=== PATIENT | female | born 1930 | race Caucasian/White ===

== ENCOUNTER → 2017-06-25 | Outpatient (CLI) | payer OTHER ==
[~2017-06-25] MED LIST: ALBINS/ INH; ATOR-22 PO; ATR10 PO; CALC600T9 PO; CARB25TA12 PO; CHOL1000 PO; CYAN1SUB13 SQ; KPP/1000 PO; LOSA1TAB PO; PLMINS NEB; PROAIR INH; PRT/20 PO; WARF4TAB8 PO
[2017-06-25 12:13] LABS: INR 1.9 (0.9-1.1); PROTHROMBIN TIME (PATIENT) 20.8 SECONDS (9.0-12.0)
== END | disposition home or self-care (01) ==
LOC: C.LABPBG 08:58
PROVIDERS: ATTEND Internal Medicine Endocrinology, Diabetes & Metabolism
DX: I48.2 Chronic atrial fibrillation (principal)

== ENCOUNTER 2017-07-12 18:26 | Emergency (ER) | payer OTHER ==
[~2017-07-12] VITALS: Ht 170.2 cm; Wt 47.0 kg
[2017-07-12 18:55] VITALS: TEMP 36.9; Ht 170.2 cm; Wt 47.0 kg
[2017-07-12] MEDS ORDERED: SODIUM CHLORIDE 0.9% 1000ML 250 ML IV STA (20:01)
--- NOTE | 2017-07-12 20:20 | DIAGNOSTIC IMAGING REPORT ---
SINGLE VIEW CHEST CLINICAL HISTORY: Atypical chest pain. FINDINGS: An AP, portable, upright chest radiograph is obtained. No prior studies are available for comparison at the time of dictation. The examination is degraded by portable technique and patient rotation. The heart is markedly enlarged and there is atherosclerotic calcification of the thoracic aorta. The pulmonary vasculature is noncongested. Nonspecific interstitial thickening is seen throughout. Linear atelectasis versus scarring is identified in the left midlung. There is no airspace consolidation typical for pneumonia or large pleural effusion. A nodular density projecting over the right lung base likely represents a nipple shadow. No pneumothorax is seen. The skeletal structures are osteopenic. The bony thorax is grossly intact. IMPRESSION: 1. Marked cardiomegaly with no acute cardiopulmonary abnormality. 2. A nodular density projecting over the right lung base likely represents a nipple shadow. A repeat examination with nipple markers would be confirmatory. Electronically signed by: Aron Jackson M.D. 07/12/2017 8:19 PM Dictated Date/Time: 07/12/2017 8:17 PM
[2017-07-12 20:47] LABS: BASO % 0.2 %; BASO ABS # 0.01 K/uL (0-0.2); COMPLETE YES; EOS % 2.8 %; HEMATOCRIT 35.9 % (37-47); IG% 0.2 %; LYMPH % 27.2 %; LYMPH ABS # 1.65 K/uL (1.2-3.4); MEAN CELL VOLUME 99.7 fL (80-100); MEAN CORPUSCULAR HEMOGLOBIN 33.1 pg (25-34); MEAN CORPUSCULAR HGB CONC 33.1 g/dl (32-36); MEAN PLATELET VOLUME 11.4 fL (7.4-10.4); MONO % 9.4 %; NEUT % 60.2 %; PLATELET COUNT 167 K/uL (130-400); WHITE BLOOD COUNT 6.06 K/uL (4.8-10.8)
[2017-07-12 20:50] LABS: MANUAL MICROSCOPIC REQUIRED? NO; REVIEW REQ? YES; URINE APPEARANCE CLEAR (CLEAR); URINE BILIRUBIN NEG (NEG); URINE COLOR YELLOW; URINE NITRITE NEG (NEG); URINE SPECIFIC GRAVITY 1.027 (1.000-1.030); UROBILINOGEN NEG (NEG)
[2017-07-12 21:09] LABS: ALKALINE PHOSPHATASE 71 U/L (45-117); ALT/SGPT 20 U/L (12-78); BLOOD UREA NITROGEN 35 mg/dl (7-18); BUN/CREATININE RATIO 32.1 (10-20); CALCIUM 8.9 mg/dl (8.5-10.1); CARBON DIOXIDE 25 mmol/L (21-32); CHLORIDE 108 mmol/L (98-107); GLUCOSE 111 mg/dl (70-99); SODIUM 141 mmol/L (136-145)
--- NOTE | 2017-07-12 21:14 | DIAGNOSTIC IMAGING REPORT ---
CT SCAN OF THE BRAIN WITHOUT IV CONTRAST CLINICAL HISTORY: Change in mental status. COMPARISON STUDY: No priors. TECHNIQUE: Unenhanced axial CT scan of the brain is performed from the vertex to the skull base. CT DOSE: 614.27 mGy.cm FINDINGS: Brain parenchyma: There are age-related involutional changes noting moderate subcortical and periventricular microangiopathic change. Right frontoparietal encephalomalacia is consistent with a remote infarct. There is no hemorrhage, mass effect, or evidence of acute territorial ischemia by CT criteria. Triana-white matter is preserved. No extra-axial fluid collection is seen. Ventricles, sulci, cisterns: Prominent secondary to involutional change. Intracranial vasculature: There is atherosclerotic calcification of the cavernous carotid and vertebral arteries. Calvarium: Unremarkable. Sinuses and mastoids: The visualized paranasal sinuses are clear. There is a left mastoid effusion. The right mastoid air cells are well pneumatized. Orbits: The bony orbits are grossly intact. There are bilateral ocular lens implants. IMPRESSION: Senescent changes and remote infarct as above. There is no hemorrhage, mass effect, or evidence of acute territorial ischemia by CT criteria. Electronically signed by: Aron Jackson M.D. 07/12/2017 9:12 PM Dictated Date/Time: 07/12/2017 9:10 PM
[2017-07-12] MEDS ORDERED: KPP/1000 PO (21:20)
[2017-07-12] MEDS ORDERED: CHOL1000 PO (21:20)
[2017-07-12] MEDS ORDERED: CARB25TA12 PO (21:20)
[2017-07-12] MEDS ORDERED: WARF4TAB8 PO (21:20)
[2017-07-12] MEDS ORDERED: ALBINS/ INH (21:20)
[2017-07-12] MEDS ORDERED: CALC600T9 PO (21:20)
[2017-07-12] MEDS ORDERED: ATOR-22 PO (21:20)
[2017-07-12] MEDS ORDERED: LOSA1TAB PO (21:20)
[2017-07-12] MEDS ORDERED: PLMINS NEB (21:21)
[2017-07-12] MEDS ORDERED: PROAIR INH (21:21)
[2017-07-12] MEDS ORDERED: CYAN1SUB13 SQ (21:21)
[2017-07-12] MEDS ORDERED: ATR10 PO (21:21)
[2017-07-12] MEDS ORDERED: PRT/20 PO (21:21)
[2017-07-12 21:57] LABS: INR 1.7 (0.9-1.1); PARTIAL THROMBOPLASTIN RATIO 1.2; PROTHROMBIN TIME (PATIENT) 18.5 SECONDS (9.0-12.0)
[2017-07-12 22:38] VITALS: BP 169/89; PULSE 79; O2SAT 97
--- NOTE | 2017-07-13 01:23 | EMERGENCY ROOM VISIT NOTE ---
History Report prepared by Huy: Anita Murphy Under the Supervision of: Dr. Rylan Hardy M.D. First contact with patient: 19:50 Chief Complaint: URINARY SYMPTOMS Stated Complaint: CONFUSION, UTI, VAGINAL IRRITATION, SORENESS Nursing Triage Summary: pt brought in by family for confusion, states "she has been repeating herself." called family doctor and told to come in to be evaluated. states pt is having "irritation down there." pt denies buring with urination. History of Present Illness The patient is a 86 year old female who presents to the Emergency Room with complaints of constant confusion beginning 1 week ago. The patient's daughter states that the patient has a history of stroke, seizures, dementia, and aortic stenosis. She reports that the patient does not normally have significant memory problems but in the last week she has been repetitive and confused. She notes that the patient does not understand what is going on and and has been repeating stories many times. The daughter states that that the patient has had confusion symptoms previously and has had a UTI. The patient complains of dysuria, shortness of breath in the mornings, and intermittent headaches. She denies any fall, fever, cough, chest pain, hematuria. She notes that she is on a blood thinner. Source of History: patient, family Onset: 1 week ago Position: other (global) Quality: other (confusion) Timing: constant Associated Symptoms: + headache, + SOB, + urinary symptoms, No LOC, No fevers, No cough, No chest pain Review of Systems See HPI for pertinent positives & negatives. A total of 10 systems reviewed and were otherwise negative. Past Medical & Surgical Medical Problems: (1) HTN (hypertension) (2) Seizures (3) TIA (transient ischemic attack) Old medical records were reviewed. Nurse's notes were reviewed and I agree with. Family History No pertinent family history stated. Social History Smoking Status: Never Smoker Drug Use: none Housing Status: lives with family Occupation Status: retired Current/Historical Medications Scheduled Atorvastatin (Lipitor), 20 MG PO HS Budesonide (Budesonide), 1 VIAL NEB BID Calcium Carbonate-Vitamin D (Calcium + D), 1 TAB PO DAILY Carbidopa/Levodopa (Sinemet 25MG/100MG), 0.5 TAB PO BID Cholecalciferol (Vitamin D3), 2 TAB PO DAILY Cyanocobalamin (B-12), 1,000 MCG SQ 2XMONTH Hydroxyzine HCl (Hydroxyzine HCl), 10 MG PO Q2D Levetiracetam (Keppra), 1,000 MG PO BID Losartan Potassium (Cozaar), 25 MG PO DAILY Pantoprazole (Protonix), 20 MG PO DAILY Warfarin Sod (Jantoven), 4 MG PO QPM Scheduled PRN Albuterol Sulf (Proventil 0.083% 2.5MG/3ML), 2.5 MG INH Q4-6HRS PRN for Wheezing [Proair], 2 PUFFS INH Q6 PRN for SOB/Wheezing Physical Exam Vital Signs Date Time Temp Pulse Resp B/P (MAP) Pulse Ox O2 Delivery O2 Flow Rate FiO2 07/12/17 22:38 79 18 169/89 97 Room Air 07/12/17 20:40 65 20 171/98 98 Room Air 07/12/17 18:55 36.9 86 18 109/58 93 Room Air Physical Exam General: Non-ill appearing older female in no acute distress. HEENT: Normal cephalic atraumatic. Pupils are equal round and reactive to light. Extraocular movements are intact. Oropharynx is pink with moist mucous membranes. No swelling of the mouth lips or tongue. Neck: Supple with a midline trachea. No meningeal signs or stiffness, no JVD or bruits. No Stridor. Chest: Clear to auscultation bilaterally. No wheezes or rhonchi. No increased work of breathing. Heart: regular rate and rhythm. Abdomen: Soft nontender, nondistended without rebound guarding or rigidity. Extremities: No cyanosis clubbing or edema. No calf tenderness or assymetry Spine/Back. Non tender to palpation. No CVA tenderness Skin: Good turgor without rashes. Neurologic exam: Cranial nerves two through 12 are intact. Motor and sensation are intact and symmetrical throughout. Medical Decision & Procedures ER Provider Diagnostic Interpretation: Radiology results as stated below per my review and radiologist interpretation: CT SCAN OF THE BRAIN WITHOUT IV CONTRAST FINDINGS: Brain parenchyma: There are age-related involutional changes noting moderate subcortical and periventricular microangiopathic change. Right frontoparietal encephalomalacia is consistent with a remote infarct. There is no hemorrhage, mass effect, or evidence of acute territorial ischemia by CT criteria. Triana-white matter is preserved. No extra-axial fluid collection is seen. Ventricles, sulci, cisterns: Prominent secondary to involutional change. Intracranial vasculature: There is atherosclerotic calcification of the cavernous carotid and vertebral arteries. Calvarium: Unremarkable. Sinuses and mastoids: The visualized paranasal sinuses are clear. There is a left mastoid effusion. The right mastoid air cells are well pneumatized. Orbits: The bony orbits are grossly intact. There are bilateral ocular lens implants. IMPRESSION: Senescent changes and remote infarct as above. There is no hemorrhage, mass effect, or evidence of acute territorial ischemia by CT criteria. Electronically signed by: Aron Jackson M.D. 07/12/2017 9:12 PM Dictated Date/Time: 07/12/2017 9:10 PM SINGLE VIEW CHEST FINDINGS: An AP, portable, upright chest radiograph is obtained. No prior studies are available for comparison at the time of dictation. The examination is degraded by portable technique and patient rotation. The heart is markedly enlarged and there is atherosclerotic calcification of the thoracic aorta. The pulmonary vasculature is noncongested. Nonspecific interstitial thickening is seen throughout. Linear atelectasis versus scarring is identified in the left midlung. There is no airspace consolidation typical for pneumonia or large pleural effusion. A nodular density projecting over the right lung base likely represents a nipple shadow. No pneumothorax is seen. The skeletal structures are osteopenic. The bony thorax is grossly intact. IMPRESSION: 1. Marked cardiomegaly with no acute cardiopulmonary abnormality. 2. A nodular density projecting over the right lung base likely represents a nipple shadow. A repeat examination with nipple markers would be confirmatory. Electronically signed by: Aron Jackson M.D. 07/12/2017 8:19 PM Dictated Date/Time: 07/12/2017 8:17 PM Laboratory Results 07/12/17 20:20 Red Blood Count 3.60, Mean Corpuscular Volume 99.7, Mean Corpuscular Hemoglobin 33.1, Mean Corpuscular Hemoglobin Concent 33.1, Mean Platelet Volume 11.4, Neutrophils (%) (Auto) 60.2, Lymphocytes (%) (Auto) 27.2, Monocytes (%) (Auto) 9.4, Eosinophils (%) (Auto) 2.8, Basophils (%) (Auto) 0.2, Neutrophils # (Auto) 3.65, Lymphocytes # (Auto) 1.65, Monocytes # (Auto) 0.57, Eosinophils # (Auto) 0.17, Basophils # (Auto) 0.01 07/12/17 20:20 07/12/17 21:31 Test 07/12/17 20:20 07/12/17 20:35 07/12/17 20:39 07/12/17 21:31 White Blood Count 6.06 K/uL (4.8-10.8) Red Blood Count 3.60 M/uL (4.2-5.4) Hemoglobin 11.9 g/dL (12.0-16.0) Hematocrit 35.9 % (37-47) Mean Corpuscular Volume 99.7 fL (80-100) Mean Corpuscular Hemoglobin 33.1 pg (25-34) Mean Corpuscular Hemoglobin Concent 33.1 g/dl (32-36) Platelet Count 167 K/uL (130-400) Mean Platelet Volume 11.4 fL (7.4-10.4) Neutrophils (%) (Auto) 60.2 % Lymphocytes (%) (Auto) 27.2 % Monocytes (%) (Auto) 9.4 % Eosinophils (%) (Auto) 2.8 % Basophils (%) (Auto) 0.2 % Neutrophils # (Auto) 3.65 K/uL (1.4-6.5) Lymphocytes # (Auto) 1.65 K/uL (1.2-3.4) Monocytes # (Auto) 0.57 K/uL (0.11-0.59) Eosinophils # (Auto) 0.17 K/uL (0-0.5) Basophils # (Auto) 0.01 K/uL (0-0.2) RDW Standard Deviation 45.9 fL (36.4-46.3) RDW Coefficient of Variation 12.5 % (11.5-14.5) Immature Granulocyte % (Auto) 0.2 % Immature Granulocyte # (Auto) 0.01 K/uL (0.00-0.02) Anion Gap 8.0 mmol/L (3-11) Est Creatinine Clear Calc Drug Dose 26.7 ml/min Estimated GFR () 52.3 Estimated GFR (Non- 45.1 BUN/Creatinine Ratio 32.1 (10-20) Calcium Level 8.9 mg/dl (8.5-10.1) Total Bilirubin 0.8 mg/dl (0.2-1) Alanine Aminotransferase (ALT/SGPT) 20 U/L (12-78) Alkaline Phosphatase 71 U/L (45-117) Total Protein 6.7 gm/dl (6.4-8.2) Albumin 3.4 gm/dl (3.4-5.0) Lipase 310 U/L (73-393) Urine Color YELLOW Urine Appearance CLEAR (CLEAR) Urine pH 5.0 (4.5-7.5) Urine Specific [place] 1.027 (1.000-1.030) Urine Protein TRACE (NEG) Urine Glucose (UA) NEG (NEG) Urine Ketones TRACE (NEG) Urine Occult Blood NEG (NEG) Urine Nitrite NEG (NEG) Urine Bilirubin NEG (NEG) Urine Urobilinogen NEG (NEG) Urine Leukocyte Esterase NEG (NEG) Urine WBC (Auto) 0 /hpf (0-5) Urine RBC (Auto) 5-10 /hpf (0-4) Urine Hyaline Casts (Auto) 0 /lpf (0-5) Urine Epithelial Cells (Auto) 5-10 /lpf (0-5) Urine Bacteria (Auto) NEG (NEG) Urine Crystals CALCIUM OXALATE (NONE Bedside Troponin I < 0.030 ng/ml (0-0.045) Prothrombin Time 18.5 SECONDS (9.0-12.0) Prothromb Time International Ratio 1.7 (0.9-1.1) Activated Partial Thromboplast Time 32.0 SECONDS (21.0-31.0) Partial Thromboplastin Ratio 1.2 Direct Bilirubin 0.2 mg/dl (0-0.2) Aspartate Amino Transf (AST/SGOT) 18 U/L (15-37) Laboratory studies as stated above per my review. Medications Administered Medications (Trade) Dose Ordered Sig/Ajit Route Start Time Stop Time Status Last Admin Dose Admin Sodium Chloride 250 ml @ 999 mls/hr Q16M STAT IV 07/12/17 20:01 07/12/17 20:16 DC 07/12/17 20:20 999 MLS/HR ECG Indication: weakness Rate (beats per minute): 65 Rhythm: atrial fibrillation Findings: RBBB, no acute ischemic change, other (poor r wave progression) ED Course 1950: Past medical records reviewed. The patient was evaluated in room B6, and a complete history and physical examination were performed. 2000: Sodium Chloride 250 ml @ 999 mls/hr IV. 2206: I reevaluated and updated the patient. 2241: Upon reevaluation, the patient is doing well. I discussed the results and treatment plan with the patient. She verbalized agreement of the treatment plan. The patient was discharged home. Medical Decision Differentials include, but are not limited to; UTI, intracranial process, infection, electrolyte or metabolic abnormality, cardiac disease. This patient comes in as described above. She was placed in room B6. She was brought in by the Family because she has been acting a little bit confused over the last week or so they think she may have a UTI. She's had problems like this off-and-on . she's had no fall or trauma. She is on Coumadin for chronic A. fib. She's had no focal numbness or weakness. She looks well on exam is alert and oriented 3. She has no neurologic deficits here. She does have a loud heart murmur consistent with aortic stenosis which she is being evaluated and for the [facility]. EKG shows no ischemic acute ischemic changes and has chronic A. fib. Her INR is slight is subtherapeutic at 1. electrolyte 7. Blood pressure is mildly elevated and she should follow-up with her regular doctor for this. She has no acute electrode or metabolic abnormalities. Urinalysis does not suggest a UTI with pack of culture pending. CAT scan of her head was unremarkable. She was hydrated with IV normal saline . Her BUN is mildly elevated and may be that she was mildly dehydrated. She seemed to do much better family says they want to take her home at think this is reasonable. She should've close follow-up with her primary doctor Dr. Kramer on Saturday for recheck and return to ER over the weekend if: Worsening symptoms, not acting like self, fever or chills, any new problems or concerns. Family was happy with plan and discharged to home. Medication Reconcilliation Current Medication List: was personally reviewed by me Blood Pressure Screening Patient's blood pressure: Normal blood pressure Blood pressure disposition: Did not require urgent referral Impression Primary Impression: Weakness Additional Impression: Dehydration Scribe Attestation The scribe's documentation has been prepared under my direction and personally reviewed by me in its entirety. I confirm that the note above accurately reflects all work, treatment, procedures, and medical decision making performed by me. Departure Information Dispostion Home / Self-Care Referrals Kenneth Kramer D.O. (PCP) Forms HOME CARE DOCUMENTATION FORM, IMPORTANT VISIT INFORMATION Patient Instructions My [facility] Additional Instructions REst Drink plenty of fluids Be careful when getting up and down Follow-up with your doctor on Saturday for recheck REturn if: worsening of symptoms, fever, not acting like self, any new problems or concerns Problem Qualifiers
== END 2017-07-12 22:39 | disposition home or self-care (01) ==
LOC: C.EDB 18:30
DX: R53.1 Weakness (principal); E86.0 Dehydration; I10 Essential (primary) hypertension; R56.9 Unspecified convulsions; G45.9 Transient cerebral ischemic attack, unspecified; Z79.01 Long term (current) use of anticoagulants

== ENCOUNTER → 2017-07-17 | Outpatient (CLI) | payer OTHER ==
[2017-07-17 12:03] LABS: HEMATOCRIT 39.2 % (37-47); MEAN CELL VOLUME 100.8 fL (80-100); MEAN CORPUSCULAR HEMOGLOBIN 33.7 pg (25-34); MEAN CORPUSCULAR HGB CONC 33.4 g/dl (32-36); MEAN PLATELET VOLUME 12.3 fL (7.4-10.4); PLATELET COUNT 179 K/uL (130-400); RED BLOOD COUNT 3.89 M/uL (4.2-5.4); WHITE BLOOD COUNT 6.13 K/uL (4.8-10.8)
[2017-07-17 12:20] LABS: ALT/SGPT 19 U/L (12-78); AST/SGOT 22 U/L (15-37); BLOOD UREA NITROGEN 25 mg/dl (7-18); BUN/CREATININE RATIO 23.3 (10-20); CALCIUM 9.1 mg/dl (8.5-10.1); CARBON DIOXIDE 27 mmol/L (21-32); CHLORIDE 107 mmol/L (98-107); CHOLESTEROL 151 mg/dl (0-200); CREATININE 1.07 mg/dl (0.60-1.20); GLUCOSE,FASTING 93 mg/dl (70-99); MAGNESIUM 1.9 mg/dl (1.8-2.4); POTASSIUM 3.8 mmol/L (3.5-5.1); SODIUM 141 mmol/L (136-145); TRIGLYCERIDES 63 mg/dl (0-150); VERY LOW DENSITY LIPOPROT CALC 13 mg/dl
[2017-07-17 12:29] LABS: ALKALINE PHOSPHATASE 66 U/L (45-117); CHOLESTEROL/HDL RATIO 1.8; HDL CHOLESTEROL 83 mg/dl
[2017-07-17 12:56] LABS: ESTIMATED AVERAGE GLUCOSE 111 mg/dl; HA1C FLAG Normal (Normal)
== END | disposition home or self-care (01) ==
LOC: C.LABPBG 08:55
PROVIDERS: ATTEND Internal Medicine Cardiovascular Disease
DX: I35.0 Nonrheumatic aortic (valve) stenosis (principal); I10 Essential (primary) hypertension; E78.5 Hyperlipidemia, unspecified; Z79.899 Other long term (current) drug therapy

== ENCOUNTER → 2017-09-06 | Outpatient (CLI) | payer OTHER ==
[2017-09-06 18:07] LABS: URINE APPEARANCE CLOUDY (CLEAR); URINE BILIRUBIN NEG (NEG); URINE COLOR DK YELLOW; URINE EPITHELIAL CELL AUTO >30 /lpf (0-5); URINE NITRITE POS (NEG); UROBILINOGEN NEG (NEG)
[2017-09-06 18:20] LABS: MANUAL MICROSCOPIC REQUIRED? NO; REVIEW REQ? YES
== END | disposition home or self-care (01) ==
LOC: C.LABSPEC 17:00
PROVIDERS: ATTEND Physician Assistant
DX: R30.0 Dysuria (principal)